=== PATIENT | male | born 1945 | race Caucasian/White ===

== ENCOUNTER 2016-09-29 14:30 | Outpatient (CLI) | payer MEDICARE, OTHER ==
[~2016-09-29] VITALS: Ht 172.7 cm; Wt 101.8 kg
[2016-09-29 14:38] VITALS: BP 132/67; PULSE 63; RESP 18; Ht 172.7 cm; Wt 101.8 kg
[2016-09-29] MEDS ORDERED: LOSA1TAB20 PO (14:50)
[2016-09-29] MEDS ORDERED: METO-448 PO (14:50)
[2016-09-29] MEDS ORDERED: ASPI-664 PO (14:50)
--- NOTE | 2016-09-29 16:22 | CONS ---
[facility] OUTPATIENT CONSULTATION NOTE DATE OF CONSULTATION: 09/29/2016 PLACE OF SERVICE: [facility] ASSESSMENT AND PLAN: A very pleasant 70-year-old gentleman with comorbidities including BMI of 34.1 and hypertension with multiple family members with malignancies presenting with what appears to be a simple pancreatic cyst. There are no obvious concerning features to this cyst and the size is reasonably small that it can certainly be followed over time with short term followup of 1 to 2 years. To complete the workup I have recommended an endoscopic ultrasound that would evaluate for any other additional worrisome features such as thickened septi, mural nodules, elevated CEA levels in the fluid and abnormal cytology. This can be done as an outpatient and we can then do a pancreas protocol CT sometime around May or June of this year in 2017 as follow up. We may also benefit from multidisciplinary tumor board presentation but I am reserving this decision until after endoscopic ultrasound findings. I also counseled the patient regarding the importance of his continued efforts to decrease his BMI into a more healthy range and I believe that he is in good track regarding that matter. I answered all the patient's questions to the best of my ability and I believe that he understands the recommendations and agrees with the plan. With above assessment I have recommended the followin. Endoscopic ultrasound evaluation of the pancreatic cyst with evaluation for fluid CEA, mucicarmine evaluation as well as cytology. 2. CT scan of abdomen and pelvis pancreas protocol May to June 2017. 3. Follow up with us after above CT scan or after endoscopic ultrasound if other concerning features are found. 4. Follow up with primary care physician. Thank you again for allowing us to participate in the care of this very pleasant gentleman and I am certain his wonderful family. If there are any questions, please feel free to call me at [phone]. TOTAL VISIT TIME: 45 minutes of which more than half was spent in [id number] discussion with the patient as well as coordination of care between multiple physicians and providers. UPDATED CLINICAL SUMMARY: The patient is a very pleasant 70-year-old gentleman with comorbidities including BMI of 34.1 and hypertension with a few minor operations in the past who was found to have a pancreatic cyst on a CT scan that was done on 2016 mainly for evaluation of right renal cyst. This CT showed a cystic lesion within the pancreatic neck measuring up to 1.7 cm. There were no enhancing features to it and followup CT in 12 months was recommended. COMORBIDITIES: 1. BMI of 34.1. 2. Hypertension. 3. Vasectomy. 4. Gause teeth operation. 5. Torn meniscus. 6. Carpal tunnel. 7. Hyperlipidemia. HISTORY OF PRESENT ILLNESS: The patient is a very pleasant 70-year-old gentleman with above comorbidities, whom we were kindly asked to consult regarding management of his pancreatic cyst that was newly diagnosed in July 2016. He is fairly asymptomatic without any abdominal pain or issues with unintentional weight loss. He has never had any pancreatitis in the past and he is not an alcohol user. He had two year history of smoking in the 1970s. He does have a fair amount of family members with cancers including colon cancer in his father, bladder cancer in his mother and leukemia in his sister. ALLERGIES: 1. ACYCLOVIR. 2. ATORVASTATIN. MEDICATIONS: 1. Losartan. 2. Metoprolol. 3. Aspirin. 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 He is and lives with his family. He has 2 children. He does not report any current smoking, drinking, or intravenous drug use. FAMILY HISTORY: As mentioned above, the patient's father had colon cancer. Mother had bladder cancer and sister had leukemia. REVIEW OF SYSTEMS: Other than the above-mentioned, there are no other pertinent positives or pertinent negatives in a complete 14-point review of systems. The patient's heart was evaluated and there were benign findings without any major intervenable disease. PHYSICAL EXAMINATION: GENERAL: The patient appears to be a very pleasant gentleman of descent, appearing stated age or younger, sitting in a chair comfortably and in no acute distress. BMI is 34.1. VITAL SIGNS: Temperature is 98.0, blood pressure 132/67, pulse 63, respiratory rate 18, pulse oximetry 94% on room air. HEENT: Normocephalic and atraumatic. Extraocular muscles and hearing are grossly intact bilaterally and symmetrically. Sclerae are nonicteric. Oral cavity is clear; oral mucosa appeared to be pink and moist. Dentition: fair. NECK: Supple. There is no lymphadenopathy or JVD. There is no submental, submandibular or supraclavicular lymphadenopathy. CHEST: Rises symmetrically with each breath; patient is breathing comfortably. There are no audible wheezes, rales or rhonchi on the gross exam. HEART: Pulse is regular and palpable on the right wrist. Capillary refill was normal. Carotid pulses are palpable bilaterally and symmetrically in the neck. EXTREMITIES: Lower extremities contain no pitting edema around the ankles bilaterally and symmetrically. ABDOMEN: Soft, nontender and nondistended. There is no evidence of organomegaly , caput medusae, engorged subcutaneous veins, or ascites. There are no peritoneal signs or guarding. SKIN: Appears to be pink and feels warm to touch. NEUROLOGIC: Awake, alert, and follows commands appropriately. LABORATORY DATA: Dated 2015 showed: Creatinine 1.08, normal liver function and injury parameters. Normal cholesterol. PSA 2.3. Hemoglobin A1c 5.7. White count 5.4, platelets 245. Urinalysis normal. IMAGING: As mentioned above. Note that I personally reviewed all the available and pertinent images and I agree in general with their overall reported findings. Dictated By: ROMEO CASTRO/SHREYA Conf#: [id number] DID#: [id number] CC: FABRICE ROACH MD;*EndCC* MTDD
== END 2016-09-29 17:00 | disposition home or self-care (01) ==
LOC: HPC 14:30
PROVIDERS: ATTEND Transplant Surgery
DX: K86.2 Cyst of pancreas (principal); I10 Essential (primary) hypertension; E78.5 Hyperlipidemia, unspecified; Z79.82 Long term (current) use of aspirin
CPT/HCPCS: G0463

== ENCOUNTER 2016-12-22 13:49 | Outpatient (CLI) | payer MEDICARE, OTHER ==
[~2016-12-22] VITALS: Ht 172.7 cm; Wt 102.5 kg
[~2016-12-22 13:49] MED LIST: ASPI-664 PO; LOSA1TAB20 PO; METO-448 PO
[2016-12-22 13:58] VITALS: BP 130/69; PULSE 61; RESP 18; Ht 172.7 cm; Wt 102.5 kg
--- NOTE | 2016-12-22 16:00 | PN ---
Date/Time of Note Date/Time of Note DATE: 12/22/16 TIME: 15:37 Assessment/Plan Assessment/Plan Assessment/Plan [facility] Progress Note Date of Service: 12/22/16 Today's Impression & Plan: Overall doing well without major issues. EUS and colonoscopy results reviewed. D /w Dr. House. Answered all questions. 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 Also, with 3 non- neoplastic polyps in the colon, which can be monitored by colonoscopy in 3 years. With above assessment, I've recommended the following for today: 1. Pancreas-protocol CT abd/pelvis with IV and oral contrast November 2017 2. Colonoscopy in November 2019 3. Call immediately if any symptoms of pancreatic insufficiency or dysfunction ( carefully reviewed with patient) Thank you again for your great care of this very pleasant patient and wonderful family. If there are any questions, please feel free to call me at [phone]. TOTAL VISIT TIME: 20 minutes of which more than half was spent in [id number] discussion with the patient, possibly including family, as well as coordination of care between multiple physicians and providers. Disclaimer: Inadvertent spelling or grammatical errors are likely due to EHR/ dictation software use and do not reflect on the overall quality of patient care. Updated Clinical Summary: A very pleasant 70-year-old gentleman with comorbidities including BMI of 34.1 and hypertension with multiple family members with malignancies presenting with what appears to be a simple pancreatic cyst. There are no obvious concerning features to this cyst and the size is reasonably small that it can certainly be followed over time with short term followup of 1 to 2 years. To complete the workup I have recommended an endoscopic ultrasound that would evaluate for any other additional worrisome features such as thickened septi, mural nodules, elevated CEA levels in the fluid and abnormal cytology. This can be done as an outpatient and we can then do a pancreas protocol CT sometime around May or June of this year in 2017 as follow up. We may also benefit from multidisciplinary tumor board presentation but I am reserving this decision until after endoscopic ultrasound findings. I also counseled the patient regarding the importance of his continued efforts to decrease his BMI into a more healthy range and I believe that he is in good track regarding that matter. I answered all the patient's questions to the best of my ability and I believe that he understands the recommendations and agrees with the plan. With above assessment I have recommended the followin. Endoscopic ultrasound evaluation of the pancreatic cyst with evaluation for fluid CEA, mucicarmine evaluation as well as cytology. 2. CT scan of abdomen and pelvis pancreas protocol May to June 2017. 3. Follow up with us after above CT scan or after endoscopic ultrasound if other concerning features are found. 4. Follow up with primary care physician. Thank you again for allowing us to participate in the care of this very pleasant gentleman and I am certain his wonderful family. If there are any questions, please feel free to call me at [phone]. TOTAL VISIT TIME: 45 minutes of which more than half was spent in [id number] discussion with the patient as well as coordination of care between multiple physicians and providers. UPDATED CLINICAL SUMMARY: The patient is a very pleasant 70-year-old gentleman with comorbidities including BMI of 34.1 and hypertension with a few minor operations in the past who was found to have a pancreatic cyst on a CT scan that was done on 2016 mainly for evaluation of right renal cyst. This CT showed a cystic lesion within the pancreatic neck measuring up to 1.7 cm. There were no enhancing features to it and followup CT in 12 months was recommended. EUS 11/18/[address] House at [facility] showed a 1.8 cm x 1.8 cm well defined hypoechoic cyst with well defined borders in the pancreatic neck. No communication with main duct. No mural nodules or septae. Clear viscous mucin-like fluid without malignant cells identified. Fluid CEA and amylase levels sent per report, but no results available as of today to me. Findings c/w side-branch IPMN. Colonoscopy 11/18/[address] House at [facility] showed polyp in ascending, transverse and descending colon, all benign tubular adenomas. COMORBIDITIES: 1. BMI of 34.1. 2. Hypertension. 3. Vasectomy. 4. Hobson teeth operation. 5. Torn meniscus. 6. Carpal tunnel. 7. Hyperlipidemia. 8. EUS 11/18/[address] House at [facility] showed a 1.8 cm x 1.8 cm well defined hypoechoic cyst with well defined borders in the pancreatic neck. No communication with main duct. No mural nodules or septae. Clear viscous mucin- like fluid without malignant cells identified. Fluid CEA and amylase levels sent per report, but no results available as of today to me. Findings c/w side- branch IPMN. 9. Colonoscopy 11/18/[address] House at [facility] showed polyp in ascending, transverse and descending colon, all benign tubular adenomas. Subjective: No major events or complaints; no abd pain and no issues with eating, appetite, bowel activity or other problems; no n/v/d; no sob or cp; + flatus; + BM and normal; + activity Objective: Vitals: See below Exam: GENERAL: On exam, the patient was sitting in a chair and appeared to be comfortable and in no acute distress. ABDOMEN: Soft, nontender and nondistended. There are no peritoneal signs or guarding. SKIN: Skin appears to be pink and feels warm to touch. NEUROLOGIC: Patient is awake, alert, and follows commands appropriately. Exam/Review of Systems Vital Signs Vitals Vital Signs Date Time Temp Pulse Resp B/P Pulse Ox O2 Delivery O2 Flow Rate FiO2 12/22/16 13:58 98.4 61 18 130/69 96 Room Air ROMEO GE M.D. Dec 22, 2016 15:59
== END 2016-12-22 16:43 | disposition home or self-care (01) ==
LOC: HPC 13:49
PROVIDERS: ATTEND Transplant Surgery
DX: K86.2 Cyst of pancreas (principal); I10 Essential (primary) hypertension; E78.5 Hyperlipidemia, unspecified; Z98.52 Vasectomy status
CPT/HCPCS: G0463